=== PATIENT | male | born 1950 | race Caucasian/White ===

== ENCOUNTER 2025-04-28 09:24 | Outpatient (CLI) | payer OTHER ==
--- NOTE | 2025-04-28 09:42 | ELECTROCARDIOGRAPH REPORT ---
[facility] Test Date: 2025-04-28 Test Time: 09:33:13 Pat Name: TAVO JIMÉNEZ Department: PRE/OP CARDIOLOGY [id number] Room: Gender: M Systems Programmer: GEO : 1950 Requested By: BHAVANA DENSON Order Number: [id number] Reading MD: Dr. ALEX Peraza Measurements Intervals [place] Rate: 49 P: 72 [place]: 213 QRS: 100 QRSD: 116 T: 105 QT: 474 QTc: 428 Interpretive Statements Sinus bradycardia Nonspecific intraventricular conduction delay Anterolateral infarct, age indeterminate Electronically Signed On 04-28-2025 17:26:[address] ALEX Peraza Please click the below link to view image of tracing.
--- NOTE | 2025-04-28 17:40 | CARDIOLOGY REPORT ---
APPROVED REPORT EXAM: Comprehensive 2D, Doppler, and color-flow Echocardiogram. Patient Location: OUT-PATIENT Blood Pressure: 120/70 mmHg Heart Rate: 51 bpm Rhythm: Sinus Bradycardia Indications Bradycardia Hx [place] Wallpaperer is Jere Mota MD No previous echo 2D Dimensions LA Diam4.7 cm IVSd 1.2 (0.7-1.1cm) LVDd 5.4 cm PWd 1.2 (0.7-1.1cm) IVSs 1.6 (0.8-1.2cm) LVDs 3.6 (2.5-4.0cm) PWs 1.7 (0.8-1.2cm) LVOT Diameter 2.22 (1.8-2.4cm) LVEF(%) 61.0 (>50%) Ao Asc Diam.3.38 cm IVC 13.58 mmFS (%) 33.0 % SV 85.9 ml M-Mode Dimensions MV EPSS 0.6 (<0.5cm) Aortic Valve AoV Peak Raphael. 125.9 cm/s AoV VTI 30.3 cm AO Peak GR. 6.3 mmHg AO Mean GR. 3 mmHg LVOT VTI 28.02 cm LVOT Peak Raphael. 111.7 cm/s DAVID (VMAX) 3.43 cm2 DAVID (VTI) 3.57 cm2 Mitral Valve MV E Velocity 73.5 cm/s MV DECEL TIME 214 ms MV A Velocity 97.6 cm/s MV PHT 51 ms E/A Ratio 0.8 MVA (PHT) 4.35 cm2 TDI E/Medial E' 11.9 Tricuspid Valve TR P. Velocity 225 cm/s RAP ESTIMATE 10 mmHg TR Peak Gr. 20 mmHg RVSP 30 mmHg Pulmonary Vein S2 Velocity 72.67 cm/s PVa [id number] msec LEFT VENTRICLE LV is normal in size with mild concentric hypertrophy. Overall systolic function appears preserved. A pex appears hypokinetic. Overall LVEF is 50-55% RIGHT VENTRICLE RV appears mildly dilated with normal contractility. ATRIA Left atrium is moderately dilated. AORTIC VALVE Trileaflet AV appears sclerotic without stenosis. Mild insufficiency. MITRAL VALVE MV is thickened with mild annular calcification and no stenosis. Mild mitral regurgitation. TRICUSPID VALVE The tricuspid valve is normal in structure. Trace tricuspid regurgitation. PULMONIC VALVE The pulmonary valve is normal in structure. Trace pulmonic regurgitation. GREAT VESSELS The aortic root is normal in size. The ascending aorta is normal in size. The IVC is normal in size a nd collapses >50% with inspiration. PERICARDIUM There is no pericardial effusion. Other Information Study Quality: Adequate Conclusion Overall LVEF is 50-55% LV is normal in size with mild concentric hypertrophy. Overall systolic function appears preserved. A pex appears hypokinetic. RV appears mildly dilated with normal contractility. Trileaflet AV appears sclerotic without stenosis. Mild insufficiency. Mild mitral regurgitation. Trace tricuspid regurgitation. Trace pulmonic regurgitation. There is no pericardial effusion.
== END 2025-04-28 23:59 | disposition home or self-care (01) ==
LOC: CARD DIAG 09:24
PROVIDERS: ATTEND Chiropractor
DX: I08.0 Rheumatic disorders of both mitral and aortic valves (principal); R00.1 Bradycardia, unspecified
CPT/HCPCS: 93005; 93306